=== PATIENT | female | born 1940 ===

== ENCOUNTER → 2017-10-03 | Outpatient (CLI) | payer MEDICARE, OTHER ==
[~2017-10-03] MED LIST: ACET500T68 PO; CHOL100052 PO; CYA1000 PO; DICL100G39 TOP; LOSA-51 PO; LOSA25TA50 PO; MAGN400C PO; METO25TA93 PO; MULT-865 PO; NAPR-1043 PO; TURM538C
[2017-10-03 10:31] LABS: PLATELET COUNT, AUTOMATED 266 K/uL (150-450)
== END ==
LOC: LAB 10:10
PROVIDERS: ATTEND Family Medicine
DX: I10 Essential (primary) hypertension (principal); E55.9 Vitamin D deficiency, unspecified; E03.9 Hypothyroidism, unspecified
CPT/HCPCS: 36415; 82040; 82247; 82306; 82310; 82374; 82435; 82565; 82947; 84075; 84132; 84155; 84295; 84439; 84443; 84450; 84460; 84481; 84520; 85025

== ENCOUNTER → 2017-11-14 | Outpatient (CLI) | payer MEDICARE, OTHER | LOC: LAB 12:19 | PROVIDERS: ATTEND Family Medicine | DX: R94.6 Abnormal results of thyroid function studies (principal) | CPT/HCPCS: 36415; 84439; 84443; 84481 ==

== ENCOUNTER → 2018-06-27 | Outpatient (CLI) | payer MEDICARE, OTHER ==
[~2018-06-27] MED LIST changes: +CELE50CA2 PO; -LOSA25TA50 PO; +LOSA25TA52 PO
--- NOTE | 2018-06-27 12:11 | RADIOLOGY IMAGING REPORT ---
FACILITY: [facility] PATIENT NAME: Alysia Salgado : 1940 MR: [id number] V: [id number] EXAM DATE: ORDERING PHYSICIAN: STEVE CARVALHO TECHNOLOGIST: Location: [facility] Patient: Alysia Salgado : 1940 Visit/Account:[id number] Date of Sevice: 06/27/2018 BONE MINERAL DENSITY DEXA Scan Clinical history: screening. Comparison: None. HIP: Bone mineral density (BMD) measured in the Left total hip region correlates with a Z-score of 1.4 a nd a T-score of -0.2. This is normal as defined by the World Health Organization. The corresponding risk of fracture in the hip is not increased compared with a young adult reference population. Bone mineral density (BMD) measured in the Left Femoral Neck region measures 0.865 g/cm?. T score -1 .2. Osteopenia. Fracture risk increased between 2-3 times FOREARM: The bone mineral density (BMD) measured in the ULTRA DISTAL left forearm, where trabecular bone predo minates, correlates with a Z-score of 0.3 and a T-score of -2.3 which is osteopenia as defined by the World Health Organization. The corresponding risk of fracture in the distal forearm is increased be tween 2-3 times compared with a young adult reference population. The bone mineral density (BMD) in the radial one third of the forearm, where cortical bone predominat es, correlates with a Z-score of 0.3 and a T-score of -2.2 which is osteopenia as defined by the Worl d Health Organization. The corresponding risk of fracture in the midshaft of the forearm is increased between 2-3 times compared with a young adult reference population. Total forearm has a Z score of 0.3 and a T score -2.2.. Osteopenia. Fracture risk increased between 2-3 times Impression: 1. Left hip : Normal 2. Left femoral neck: g/cm2 0.865. T score -1.2. Osteopenia 3. Left Forearm: Osteopenia The next DEXA scan of this patient should include the following sites: Left hip and Left Forearm. FRAX? WHO Fracture Risk Assessment Tool link: <http://www.shef.ac.uk/FRAX/tool.jsp?locationValue=9> PLEASE NOTE: 1) The World Health Organization defines low BMD as follows: T-score Normal > -1 Osteopenia < -1 and > -2.5 Osteoporosis < -2.5 without fractures Established osteoporosis < -2.5 with fractures 2) In general, you may wish to consider: Diagnosis Treatment Follow-up DEXA Normal BMD Prevention 2-3 years Osteopenia Prevention/therapy 1-2 years Osteoporosis Therapy Yearly 3) Fracture risk estimated from the T-score is more accurate for vertebral fractures (often spontane ous) than for hip fractures. Report Dictated By: Ferny Pike MD at 06/27/2018 12:01 PM Report E-Signed By: Ferny Pike MD at 06/27/2018 12:07 PM NIDIAN:KARLA
== END ==
LOC: RAD 00:48
PROVIDERS: ATTEND Family Medicine
DX: Z13.820 Encounter for screening for osteoporosis (principal); M85.88 Other specified disorders of bone density and structure, other site; Z78.0 Asymptomatic menopausal state
CPT/HCPCS: 77080

== ENCOUNTER → 2018-12-20 | Outpatient (CLI) | payer MEDICARE, OTHER ==
[~2018-12-20] MED LIST changes: -LOSA25TA52 PO; +LOSA25TA57 PO
[2018-12-20 10:53] LABS: PLATELET COUNT, AUTOMATED 286 K/uL (150-450)
== END ==
LOC: LAB 10:03
PROVIDERS: ATTEND Family Medicine
DX: I10 Essential (primary) hypertension (principal)
CPT/HCPCS: 36415; 82040; 82247; 82310; 82374; 82435; 82565; 82947; 84075; 84132; 84155; 84295; 84443; 84450; 84460; 84520; 85025